=== PATIENT | male | born 1980 | race African-American/Black ===

== ENCOUNTER 2020-02-26 14:52 | Emergency (ER) | payer MEDICAID ==
[~2020-02-26] VITALS: Ht 185.4 cm; Wt 195.0 kg
[2020-02-26] MEDS ORDERED: ACETAMINOPHEN 500 MG TABLET PO ONE (16:00)
[2020-02-26 16:54] VITALS: BP 119/77
[2020-02-26] MEDS ORDERED: CEPHALEXIN MONOHYDRATE 500 MG CAPSULE PO ONE (17:00)
[2020-02-26] MEDS ORDERED: SULFAMETHOX/TRIMETH DS 800-160 MG/TABLET PO ONE (17:00)
== END 2020-02-26 17:30 | disposition home or self-care (01) ==
LOC: EMS 14:54
DX: L03.116 Cellulitis of left lower limb (principal); F15.10 Other stimulant abuse, uncomplicated; F17.210 Nicotine dependence, cigarettes, uncomplicated; F12.90 Cannabis use, unspecified, uncomplicated
CPT/HCPCS: 93971; 99406; 73590-TC; 73610-TC; Z7502; Z7610

== ENCOUNTER → 2024-12-25 | Emergency (ER) | payer MEDICAID ==
[~2024-12-25] VITALS: Ht 180.3 cm; Wt 100.9 kg
[2024-12-25 15:38] VITALS: TEMP 98.4
[2024-12-25 15:51] LABS: PLATELET COUNT (AUTO) 273 K/uL (150-450); RED BLOOD CELL COUNT(AUTO) 5.53 MIL/uL (4.50-5.90); RED CELL DISTRIBUTION WIDTH 14.3 % (11.5-14.5); WHITE BLOOD COUNT (AUTO) 8.3 K/uL (4.5-11.0)
[2024-12-25 15:57] LABS: CALCIUM, TOTAL 8.6 mg/dL (8.8-10.5); CREATININE 0.88 mg/dL (0.60-1.30); GLOMERULAR FILTR. RATE CALC > 60 mL/min (>60); GLUCOSE,RANDOM 89 mg/dL (70-110); SODIUM SERUM 141 mmol/L (136-145); UREA NITROGEN, BLOOD 8 mg/dL (7-18)
[2024-12-25 15:59] LABS: ALCOHOL, BLOOD (SERUM) < 3 mg/dL (0-10)
[2024-12-25 16:01] LABS: ASPARTATE AMINOTRANSFERASE 23 U/L (15-37); TOTAL PROTEIN, SERUM 7.5 g/dL (6.4-8.2)
[2024-12-25 16:02] LABS: COVID AG,FIA SOURCE NASAL SWAB
[2024-12-25 16:24] LABS: SARS-COV2 (COVID) ANTIGEN,FIA Negative (Negative)
[2024-12-25 20:47] VITALS: BP 121/99; PULSE 85; RESP 18; O2SAT 98
== END | disposition still patient (30) ==
LOC: EMS 14:21
DX: F15.90 Other stimulant use, unspecified, uncomplicated (principal); R53.83 Other fatigue; F17.210 Nicotine dependence, cigarettes, uncomplicated; F12.90 Cannabis use, unspecified, uncomplicated; F20.9 Schizophrenia, unspecified; Z20.822 Contact with and (suspected) exposure to COVID-19
CPT/HCPCS: 99283; 87426; 80048; 80076; 85025; 36415; G0480